=== PATIENT | male | born 1980 | race African-American/Black ===

== ENCOUNTER 2021-04-30 03:43 | Emergency (ER) | payer MEDICAID ==
[~2021-04-30] VITALS: Ht 182.9 cm; Wt 95.0 kg
[2021-04-30] MEDS ORDERED: TETANUS, DIPHTHERIA, PERTUSSIS VAC/PF 0.5ML (>7YR OLD) IM ONE (04:00)
[2021-04-30 04:22] LABS: BASOPHILS % 0.7 % (0.0-2.0); EOSINOPHILS % 1.3 % (0.0-5.0); HEMATOCRIT. 39.4 % (42.0-52.0); HEMOGLOBIN. 13.2 g/dL (14.0-18.0); LYMPHOCYTES % 17.7 % (20.0-50.0); MEAN CORPUSCULAR HEMOGLOBIN 28.5 pg (28.0-32.0); MEAN CORPUSCULAR VOLUME 85.4 fL (80.0-94.0); MEAN PLATELET VOLUME 8.4 fl (7.4-10.4); NEUTROPHILS % 72.3 % (40.0-76.0); PLATELET 209 x1000/uL (130-400); RED BLOOD CELL COUNT 4.62 mill/uL (4.7-6.1); RED CELL DISTRIBUTION WIDTH 14.1 % (11.6-14.6)
[2021-04-30 04:29] LABS: CHLORIDE 106 mEq/L (98-107)
[2021-04-30 04:34] LABS: ETHANOL BLOOD < 10 mg/dL
[2021-04-30] MEDS ORDERED: POTASSIUM CHLORIDE 20MEQ TABLET SR PO NR (05:00)
[2021-04-30 05:49] VITALS: BP 158/79
== END 2021-04-30 05:51 | disposition home or self-care (01) ==
LOC: ER 04:02
DX: S00.81XA Abrasion of other part of head, initial encounter (principal); E87.6 Hypokalemia; Y08.89XA Assault by other specified means, initial encounter; Y93.89 Activity, other specified; Y92.9 Unspecified place or not applicable; F20.9 Schizophrenia, unspecified; F31.9 Bipolar disorder, unspecified
CPT/HCPCS: 36415; 80053; 80307; 80320; 80329; 84443; 85025; 99284; G0480